=== PATIENT | female | born 1960 | race African-American/Black ===

== ENCOUNTER 2023-07-30 04:05 | Emergency (ER) | payer OTHER ==
[~2023-07-30] VITALS: Ht 170.2 cm; Wt 65.0 kg
[2023-07-30 04:21] VITALS: O2SAT 99
[2023-07-30 06:05] VITALS: BP 148/103; PULSE 101; RESP 18; TEMP 97.3
[2023-07-30] MEDS: LORAZEPAM 1MG TABLET PO ONE (07:20)
== END 2023-07-30 07:23 | disposition left against medical advice (07) ==
LOC: ER 04:05
DX: R45.1 Restlessness and agitation (principal); F41.9 Anxiety disorder, unspecified; E11.9 Type 2 diabetes mellitus without complications; I10 Essential (primary) hypertension; Z85.9 Personal history of malignant neoplasm, unspecified
CPT/HCPCS: 99283